=== PATIENT | male | born 1950 | race Caucasian/White ===

== ENCOUNTER 2020-06-24 00:33 | Outpatient (CLI) | payer MEDICARE, OTHER, SELFPAY ==
[2020-06-25 13:40] LABS: SARS-CoV-2 RNA PCR Negative
== END 2020-06-24 00:34 | disposition home or self-care (01) ==
LOC: ANHCOVIDDT 00:33
PROVIDERS: Visit Provider Specialist
DX: Z01.812 Encounter for preprocedural laboratory examination (principal); Z20.828 Contact with and (suspected) exposure to other viral communicable diseases
CPT/HCPCS: 87635; C9803; U0003

== ENCOUNTER 2020-06-27 05:16 | Day surgery (SDC) | payer MEDICARE, OTHER, SELFPAY ==
[2020-06-24 20:36] VITALS: BMI 27.5
[2020-06-27] VITALS (22 sets, daily range): BP systolic 110–150; BP diastolic 42–87; PULSE 65–88; RESP 12–20; TEMP 36.3; O2SAT 92–99
[2020-06-27 07:31] LABS: Basophils Percent Auto 0.2 % (0.2-1.2); Hematocrit 48.2 % (42.0-52.0); Hemoglobin 16.2 g/dL (14.0-18.0); Immature Granulocyte Absolute 0.03 K/mm3 (0.00-0.031); Immature Granulocyte Percent A 0.3 % (0-0.5); Lymphocytes Absolute Auto 1.18 K/mm3 (0.9-3.2); Lymphocytes Percent Auto 13.5 % (18.3-44.2); Mean Corpuscular HGB Conc 33.6 g/dl (32-36); Mean Corpuscular Hemoglobin 30.3 pg (26-34); Mean Corpuscular Volume 90.1 fl (80-100); Mean Platelet Volume 9.3 fl (7.4-10.4); Monocytes Absolute Auto 0.1 K/mm3 (0.1-0.6); Monocytes Percent Auto 0.7 % (2.6-8.5); Neutrophils Absolute Auto 7.4 K/mm3 (1.3-6.7); Neutrophils Percent Auto 85.3 % (45.5-73.1); Platelet Count Result 218 k/mm3 (150-375); Red Blood Count 5.35 M/mm3 (4.6-6.20); Red Cell Distribution Width 12.9 % (11.5-14.5); White Blood Count 8.7 K/mm3 (4.5-10.0)
[2020-06-27 07:44] LABS: INR 1.1; Prothrombin Time 13.7 Seconds (11.1-14.7)
[2020-06-27 07:51] LABS: Anion Gap 10 mmol/L (8-16); Blood Urea Nitrogen 22 mg/dL (9-20); Calcium 9.3 mg/dL (8.4-10.2); Carbon Dioxide 28 mmol/L (22-30); Chloride 102 mmol/L (98-107); Estimated CRCL calculation 66 ml/min; Estimated Glomerular Filt Rate > 60; Glucose 191 mg/dL (75-110); Potassium 4.1 mmol/L (3.4-5.0); Sodium 140 mmol/L (137-145)
--- NOTE | 2020-06-27 08:51 | WPDMODSED ---
Moderate Sedation Note-Pt Data Patient Data Diagnosis: coronary artery disease with 2 previous RCA interventions recurrent anginal chest pain Present Complaint: exertional chest pain Procedure to be performed/Plan: left heart catheterization, possible PCI Allergies Allergy/AdvReac Type Severity Reaction Status Date / Time iodine Allergy Intermediate Hives / Verified 06/24/20 20:11 Red Face Chocolate Allergy Unknown Headache Uncoded 06/24/20 20:11 Home Medications Medication Instructions Recorded Confirmed Type Eyepromise 2 tab-cap PO DAILY 06/24/20 06/24/20 History aspirin 81 mg PO DAILY 06/24/20 06/24/20 History coQ10 (ubiquinol) 200 mg PO DAILY 06/24/20 06/24/20 History lisinopril 20 mg PO DAILY 06/24/20 06/24/20 History nitroglycerin 0.4 mg SUBLINGUAL PRN PRN 06/24/20 06/24/20 History rosuvastatin [Crestor] 5 mg PO DAILY 06/24/20 06/24/20 History tamsulosin 0.4 mg PO DAILY 06/24/20 06/24/20 History Current Medications: Active Medications Sodium Chloride (Normal Saline Iv) 500 mls @ 100 mls/hr IV CONT .Q5H [facility] Sedation/Anesthesia: No previous sedation/anesthesia problems (including family history). [facility] Social History Social History Smoking status: Light tobacco smoker Tobacco type: cigars Second hand tobacco smoke exposure: Yes Alcohol intake: current Drinks per week: 1 Substance use: never Substance use type: does not use Living arrangements: with family Gender identity (if verbalized by the patient): Male Spiritual care concerns: No Mod Sed Physical Exam Physical Exam Pre Procedural Exam: Normal: Appearance, Neck, Throat, Airway, Lungs, Heart Size, Heart Rate, Heart Rhythm, Neuro Exam and Extremities Hours since solid foods: 12 Hours since liquid intake: 12 Internal Medicine - PN: Obj Da Vital Signs Vital Signs: Vital Signs - 24 hr 06/27/20 07:24 Temperature 36.3 C L Pulse Rate 76 Respiratory Rate 13 Blood Pressure 140/78 Pulse Oximetry 99 Meds/Results Medications: Active Medications Generic Name Dose Route Start Last Admin Trade Name Freq PRN Reason Stop Dose Admin Sodium Chloride 500 mls @ 100 mls/hr 06/27/20 06:00 Normal Saline Iv IV CONT .Q5H [facility] Labs CBC & Chem 7: 06/27/20 07:16 06/27/20 07:16 Labs: Laboratory Results - last 24 hr 06/27/20 06/27/20 06/27/20 07:16 07:16 07:16 WBC 8.7 RBC 5.35 Hgb 16.2 Hct 48.2 MCV 90.1 MCH 30.3 MCHC 33.6 RDW 12.9 Plt Count 218 MPV 9.3 Immature Gran % (Auto) 0.3 Neut % (Auto) 85.3 H Lymph % (Auto) 13.5 L [place] % (Auto) 0.7 L Eos % (Auto) 0.0 Baso % (Auto) 0.2 Lymph # (Auto) 1.18 [place] # (Auto) 0.1 Eos # (Auto) 0.0 Baso # (Auto) 0.0 Abs Immat Gran (auto) 0.03 Absolute Neuts (auto) 7.4 H Absolute Nucleated RBC 0.0 Nucleated RBC % 0.0 PT 13.7 INR 1.1 Sodium 140 Potassium 4.1 Chloride 102 Carbon Dioxide 28 Anion Gap 10 BUN 22 H Creatinine 0.90 Estim Creat Clear Calc 66 Estimated GFR > 60 Glucose 191 H Calcium 9.3 ASA Classification/Sedation ASA Classification/Sedation ASA Class: III Emergent: No Risks: Risks, benefits and alternatives explained and patient/family accepted plan for sedation. Patient re-evaluated immediately prior to sedation.
--- NOTE | 2020-06-27 09:40 | WPDCARDPROC ---
Cardiac Cath Procedure Note Date of procedure:: 06/27/20 Performing physician:: Solis Toure MD Indication:: History of coronary disease with 2 previous RCA intervention exertional fatigue Brief clinical history:: this is a 69-year-old man with a history of coronary disease he has had 2 previous RCA interventions most recently the vessel was totally occluded and collateralized in 2016 and was reopened with PCI with a drug-eluting stent in the proximal to midportion of the vessel. The patient has done well but came to the office recently reporting symptoms of fatigue and lack of energy with exertion and indicated these were the same symptoms that he had with previous ischemia. In this setting a follow-up angiogram has been recommended Procedure Procedure performed:: left heart catheterization with left ventriculography and coronary angiography IFR to right coronary artery Sedation/Medication given:: fentanyl 50 mg Versed 2 mg case start time 9:00 a.m. case end time 9:35 a.m. sedation provided by Taisha Kirby RN, trained observer Access site:: right femoral Estimated blood loss:: 15-20 cc Procedure note:: patient was brought to the cardiac catheterization lab in the postabsorptive state the right femoral triangle was prepared and draped usual fashion. Anesthesia was provided with 1% lidocaine infiltrated locally. Using the modified Seldinger technique the right common femoral artery was punctured and a 5 [place] vascular sheath was placed. I used a 5 [place] angled pigtail catheter to perform a left ventriculogram in the [place]TERS projection and document left-sided hemodynamics. Following this I used a 5 [place] FL4 catheter to engage inject the left coronary artery and then a 5 [place] JR4 catheter to engage inject the right coronary artery. This any angiograms were then reviewed. IFR of the right coronary artery was then recommended. The patient had the 5 [place] sheath changed over a guidewire for 6 [place]. He was systemically anticoagulated with an Angiomax for this IFR procedure. Following IFR the right coronary was injected for 1 final angiogram the case was then terminated. The patient was taken to the holding area for sheath removal. 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 Findings:: hemodynamics: Central aortic pressure is 154/70 left ventricle 154/0 end-diastolic of 10 there is no systolic gradient on pullback across the aortic valve. the left ventricle was injected in the [place]TERS projection and is of normal size all segments contract very well the global ejection fraction is 60-65% The left main coronary is short but nicely patent the left anterior descending is a [id number]-[id number] caliber vessel extending down to around the apex. There is mild plaquing representing no more than 20-30% stenosis in the proximal 1/3 of the LAD. No flow-limiting disease is identified. The circumflex is a large caliber vessel giving rise to the marginal branches and a posterior branch. The circumflex has about 50% stenosis in the largest OM branch. The remainder of the vessel is unremarkable. The right coronary artery is large in caliber and appears to be codominant. The vessel terminates in a moderate-sized RPDA. There is visible stent material in the proximal and mid right coronary artery from 2 previous interventions. The stented area is widely patent with no loss of lumen. There is modest stenosis in the proximal right coronary prior to the stent material angiographically this appears to be about 40-50% stenosis. Because of his symptoms I elected to perform an IFR of this lesion. IFR measured 0.98. The IFR was performed using a 6 [place] WRP guiding catheter. The IFR wire was equalized in the aortic root and placed into the mid to distal RCA well beyond the lesion in question. Conclusion:: 1. Coronary artery disease with 2 previous
== END 2020-06-27 19:15 | disposition home or self-care (01) ==
PROVIDERS: Visit Provider Specialist
PROC: 4A023N7 Measurement of Cardiac Sampling and Pressure, Left Heart, Percutaneous Approach (ICD-10-PCS; CPT 93452; principal; 2020-06-27 08:30)
PROC: 4A033BC Measurement of Arterial Pressure, Coronary, Percutaneous Approach (ICD-10-PCS; CPT 93571; 2020-06-27 08:30)
DX: I25.10 Atherosclerotic heart disease of native coronary artery without angina pectoris (principal); Z95.5 Presence of coronary angioplasty implant and graft; F17.290 Nicotine dependence, other tobacco product, uncomplicated; Z79.82 Long term (current) use of aspirin; Z79.899 Other long term (current) drug therapy
CPT/HCPCS: 36415; 80048; 85025; 85610; 93458; 93571; C1769; C1887; C1894; J0583; J1644; J2250; J3010; J7040

== ENCOUNTER 2021-01-18 10:38 | Emergency (ER) | payer MEDICARE, OTHER, SELFPAY ==
[2021-01-18] VITALS (32 sets, daily range): BP systolic 113–150; BP diastolic 63–84; PULSE 57–71; RESP 7–20; TEMP 36.3; O2SAT 95–100
--- NOTE | ~2021-01-18 | XR_ITS ---
EXAMINATION: XR chest 2V EXAM DATE: 01/18/2021 11:09 INDICATION: Mid chest pain. TECHNIQUE: Frontal and lateral projections of the chest obtained and reviewed. Comparison is made to prior examination from 06/24/2016. FINDINGS: The lungs are clear. There are no pleural effusions. The cardiomediastinal silhouette is within normal limits. There is no pneumothorax suspected. Patient has diffuse idiopathic skeletal h yperostosis (DISH). IMPRESSION: No acute cardiopulmonary findings. Reviewed, dictated and finalized at location A.
--- NOTE | 2021-01-18 10:43 | ECG_ITS ---
Measurements Intervals [place] Rate: 66 P: 72 IA: 139 QRS: 46 QRSD: 95 T: 43 QT: 394 QTc: 413 Interpretive Statements SINUS RHYTHM DELAYED PRECORDIAL R/S TRANSITION NONSPECIFIC ST ELEVATION IN ATNERIOR LEADS BORDERLINE ECG Electronically Signed On 01-18-2021 11:46:48 CDT by Quincy Jha D.O.
[2021-01-18 11:05] LABS: Basophils Absolute Auto 0.1 K/mm3 (0.0-0.1); Basophils Percent Auto 0.9 % (0.2-1.2); Eosinophils Absolute Auto 0.1 K/mm3 (0-0.3); Eosinophils Percent Auto 1.2 % (0-4.4); Hematocrit 43.7 % (42.0-52.0); Hemoglobin 14.8 g/dL (14.0-18.0); Immature Granulocyte Absolute 0.02 K/mm3 (0.00-0.031); Immature Granulocyte Percent A 0.3 % (0-0.5); Lymphocytes Absolute Auto 1.31 K/mm3 (0.9-3.2); Lymphocytes Percent Auto 20.4 % (18.3-44.2); Mean Corpuscular HGB Conc 33.9 g/dl (32-36); Mean Corpuscular Volume 88.6 fl (80-100); Mean Platelet Volume 8.9 fl (7.4-10.4); Monocytes Absolute Auto 0.5 K/mm3 (0.1-0.6); Monocytes Percent Auto 7.5 % (2.6-8.5); Neutrophils Absolute Auto 4.5 K/mm3 (1.3-6.7); Neutrophils Percent Auto 69.7 % (45.5-73.1); Platelet Count Result 216 k/mm3 (150-375); Red Blood Count 4.93 M/mm3 (4.6-6.20); Red Cell Distribution Width 13.2 % (11.5-14.5); White Blood Count 6.4 K/mm3 (4.5-10.0)
[2021-01-18 11:14] LABS: INR 0.9
[2021-01-18 11:15] LABS: Partial Thromboplastin Time 27.1 SECONDS (22.3-36.8)
[2021-01-18 11:17] LABS: Anion Gap 7 mmol/L (8-16); Blood Urea Nitrogen 27 mg/dL (9-20); Calcium 9.1 mg/dL (8.4-10.2); Carbon Dioxide 26 mmol/L (22-30); Chloride 107 mmol/L (98-107); Estimated CRCL calculation 65 ml/min; Estimated Glomerular Filt Rate > 60; Glucose 187 mg/dL (75-110); Potassium 4.2 mmol/L (3.4-5.0); Sodium 140 mmol/L (137-145)
[2021-01-18 11:28] LABS: Troponin I < 0.012 ng/mL (0.000-0.034)
--- NOTE | 2021-01-18 11:50 | ED.CHESTPAIN ---
HPI - Chest Pain General Chief Complaint: Chest Pain Stated Complaint: chest pain Time Seen by Provider: 01/18/21 11:49 History of Present Illness HPI narrative: 70 yo male with h/o CAD s/p stenting x2 presents to the ED c/o chest pain. He had sudden onset of mild left sided chest pain this morning while eating breakfast. Pain felt like dull pressure. Associated with mild SOB. He took nitro glycerin which seemed to help. He currently has no pain, but says that he does have a very mild abnormal sensation in his chest. He denies any other symptoms. Related Data Home Medications Medication Instructions Recorded Confirmed Eyepromise 2 tab-cap PO DAILY 06/24/20 06/24/20 aspirin 81 mg PO DAILY 06/24/20 06/24/20 coQ10 (ubiquinol) 200 mg PO DAILY 06/24/20 06/24/20 lisinopril 20 mg PO DAILY 06/24/20 06/24/20 nitroglycerin 0.4 mg SUBLINGUAL PRN PRN 06/24/20 06/24/20 rosuvastatin [Crestor] 5 mg PO DAILY 06/24/20 06/24/20 tamsulosin 0.4 mg PO DAILY 06/24/20 06/24/20 Allergies Allergy/AdvReac Type Severity Reaction Status Date / Time iodine Allergy Intermediate Hives / Verified 01/18/21 11:45 Red Face Chocolate Allergy Unknown Headache Uncoded 06/24/20 20:11 Review of Systems Review of Systems: All systems reviewed & are unremarkable except as noted in HPI and below Constitutional: Constitutional: Reports no additional constitutional complaints Cardiovascular: Cardiovascular: Reports as per HPI Respiratory: Respiratory: Reports as per HPI Gastrointestinal: Gastrointestinal: Reports no additional gastrointestinal complaints Musculoskeletal: Musculoskeletal: Reports no additional musculoskeletal complaints Neurologic: Reports system reviewed and no additional complaints, except as documented [facility] Past Medical History Medical History (Updated 01/27/21 @ 10:24 by Mason Del Valle MD) BPH (benign prostatic hyperplasia) CAD (coronary artery disease) HTN (hypertension) Surgical History Surgical History (Updated 01/27/21 @ 10:24 by Mason Del Valle MD) Stented coronary artery Social History Social History Smoking status: Light tobacco smoker Tobacco type: cigars Second hand tobacco smoke exposure: Yes Alcohol intake: current Drinks per week: 1 Substance use: never Substance use type: does not use Gender identity (if verbalized by the patient): Male Spiritual care concerns: No Exam Const: General: healthy appearing, no acute distress and alert Orientation/consciousness: patient oriented x3 HENMT: Head: normal to inspection Neck: Neck: normal visual inspection Chest: Chest palpation & inspection: tenderness pectoral muscle on the left Resp: Effort & Inspection: normal respiratory effort Auscultation: clear to auscultation bilaterally, no rales, no rhonchi and no wheezes Cardio: Jugular venous distension: no JVD Rate: regular rate Rhythm: regular rhythm GI: Inspection: non-distended GI Palp: Yes Soft to palpation and No Tenderness to palpation present (GI) Skin: General skin exam: normal color Neuro: General: patient oriented x3 and moves all extremities Speech: normal speech Extrem: General: no edema Psych: Appearance: well kempt Affect: normal affect Course Vital Signs Vital signs: Vital Signs Temperature 36.3 C L 01/18/21 10:51 Pulse Rate 71 01/18/21 10:51 Respiratory Rate 18 01/18/21 10:51 Blood Pressure 128/63 01/18/21 10:51 Pulse Oximetry 97 01/18/21 10:51 Temperature 36.3 C L 01/18/21 10:51 Pulse Rate 60 01/18/21 15:31 Respiratory Rate 11 L 01/18/21 15:31 Blood Pressure 150/83 H 01/18/21 15:31 Pulse Oximetry 97 01/18/21 15:31 MDM - Chest Pain MDM Narrative Medical decision making narrative: Pain free. EKG completely normal. Troponin negative x2. Case discussed with cardiology. They agree with discharge and close follow-up Differential Diagnosis Differential diagnosis: Likely stable angina, unstable angina pect
[2021-01-18] MEDS: ASPIRIN 81 MG CHEWABLE TABLET 324 MG PO (13:26)
[2021-01-18 14:32] LABS: Troponin I < 0.012 ng/mL (0.000-0.034)
== END 2021-01-18 15:48 | disposition home or self-care (01) ==
PROVIDERS: Emergency Medicine; Emergency Provider Emergency Medicine
DX: R07.9 Chest pain, unspecified (principal); N40.0 Benign prostatic hyperplasia without lower urinary tract symptoms; I25.10 Atherosclerotic heart disease of native coronary artery without angina pectoris; I10 Essential (primary) hypertension; Z95.5 Presence of coronary angioplasty implant and graft; F17.290 Nicotine dependence, other tobacco product, uncomplicated; R94.31 Abnormal electrocardiogram [ECG] [EKG]
CPT/HCPCS: 36415; 71046; 80048; 84484; 85025; 85610; 85730; 93005; 99284; A9270